=== PATIENT | female | born 1965 | race Caucasian/White ===

== ENCOUNTER 2016-08-08 13:46 | Inpatient (IN) | payer OTHER ==
--- NOTE | ~2016-08-08 | CN ---
Consultation Report [facility] [address] [place]. [address] NAME: CRESENCIO STRATTON : 69 STATUS : ADM IN PAT#: [id number] AGE: 51 ADM/REG DATE : 08/08/16 MR#: [id number] REPORT SERV DATE: 08/09/16 DICTATED BY: OPAL NEWTON DATE: 08/09/16 REPORT STATUS : Draft TRANSCRIBED BY: MODL DATE: 08/09/16 UROLOGY CONSULT DATE OF CONSULTATION: 08/09/2016 This consult is from Dr. Hernandez regarding hematuria and dysuria. CHIEF COMPLAINT: "Blood in my urine." HISTORY: This is a 51-year-old woman, who has had gross hematuria since April. She underwent a TURBT on 06/29/2016, in [place] by Dr. Eladio Neri. She reports she has bladder cancer. However, she has yet to follow up for her pathology results and no pathology report has been reviewed with the patient as of yet. So, that diagnosis is not confirmed. She states that since her surgery, she has been having intermittent hematuria, and she has been having dysuria with frequency and urgency of urination and suprapubic pain. She states she has called Dr. Neri's office several times and spoken to staff complaining of urinary tract infections. She has left urinalysis and has been called back and told she has not had an infection, so no antibiotics have been given. The patient has been frustrated with those reports, so she presented to the emergency room yesterday afternoon at [facility] with the above stated symptoms. CT scan shows no specific findings, all of them are read as interpretation per urinalysis and clinical findings. She has some renal pelvic fullness bilaterally, but no hydroureter. Perinephric stranding is red, but it is very mild. Her right bladder wall was thickened, consistent with recent TURBT. There is no free pelvic fluid. Her urinalysis shows greater than 150 red blood cells, but only 12 white blood cells. There is trace leukocyte esterase. I have called the microbiology lab this morning, and her culture is growing vaginal contaminant. Her white blood cell count is normal. Her creatinine is normal. Her procalcitonin and lactate levels are normal. PAST MEDICAL HISTORY: Hypertension, anxiety disorder, asthma, elevated lipids, tobacco abuse, history of a bladder mass, not yet specified. PAST SURGICAL HISTORY: TURBT on 06/29/2016, carpal tunnel release, left leg surgery, BTL, cholecystectomy, appendectomy, and left oophorectomy. ALLERGIES: SULFA, AZITHROMYCIN, MACROBID, AND MEPERIDINE. HOME MEDICATIONS: ProAir, Xanax, Lipitor, Colace, Flonase, Storden, Advil, indapamide, magnesium, Lopressor, Singulair, potassium, and Altace. SOCIAL HISTORY: . One pack per day x30 years tobacco use. Denies any alcohol use. REVIEW OF SYSTEMS: GENERAL: She denies fever or chills. NEUROLOGIC: Denies symptoms. LUNGS: As above. Consultation Report [address] [place]. [address] NAME: CRESENCIO STRATTON : 69 STATUS : [facility]M [facility]#: [id number] AGE: 51 ADM/REG DATE : 08/08/16 MR#: [id number] REPORT SERV DATE: 08/09/16 DICTATED BY: OPAL NEWTON DATE: 08/09/16 REPORT STATUS : Draft TRANSCRIBED BY: THANG DATE: 08/09/16 HEART: As above. GASTROINTESTINAL: Denies symptoms. GENITOURINARY: As above. MUSCULOSKELETAL: As above. PHYSICAL EXAMINATION: VITAL SIGNS: She is afebrile. Vital signs are stable. She had 3041 mL in and 16 voids. GENERAL: She is in no acute distress. NEUROLOGIC: Alert and oriented x3. PSYCHIATRIC: Anxious. HEENT: Facial features symmetric. Eyes sclerae anicteric. NECK: Supple. LUNGS: Equal inspiratory effort bilaterally. EXTREMITIES: No lower extremity edema noted. LABORATORY STUDIES: White count is 9.8 today, hemoglobin 13, hematocrit 39.0, platelets of 231. Sodium 140, potassium 3.4, chloride 106, CO2 of 29, BUN of 6, creatinine is 0.58, glucose of 108. PTT of 30.8, PT of 13.2, and INR of 1. Urinalysis as stated above. Urine culture is growing 50,000 mixed organisms consistent with vaginal contaminant. CT scan as stated above. Procalcitonin 0.06. BladderScan today postvoid is less than 40 mL. DISCUSSION: I explained to Ms. Stratton that all of her symptoms are normal after TURBT. I explained that she has a large raw sore area on the inside of her bladder that will take three to four months for it to completely heal. Her urine is naturally acidic like lemon juice, so, it echavarria when it hits that sore area in her bladder. I gave her a low acid diet handout, instructed her to drink 2 to 3 L of plain water a day, to use Pyridium or AZO- Standard 200 mg three times a day scheduled. I have written her for oxybutynin ER 10 mg to take every day. I have given her prescription for one-month supply. This is enough to get her through to her next appointment with Dr. Neri or her primary care physician. She no longer needs antibiotics. She simply needs time to heal. Since her primary complaint is difficulty obtaining a postoperative visit with Dr. Neri, I called his answering service today and spoke with Dr. Barry, who is covering for their group. He states that he will give her name to the staff in the morning and they will be ready to receive a phone call from the unit manager rn first thing in the morning to arrange a postoperative visit for Ms. Stratton with Dr. Neri. I explained to Ms. Stratton that our group is very familiar with the [place] group and all of their urologists. I know Dr. Neri and he is a good urologist. He deserves a chance to see her back in the office and explain what he saw at surgery, what her pathology results showed, and what the plan is from here. I am not comfortable ethically or morally taking over her care in the middle of a workup. I do not believe she needs a new urologist for a misunderstanding with his office staff. After discussion, she agrees with the above and as stated, understanding. IMPRESSION: Hematuria, dysuria, frequency, and urgency after a TURBT. PLAN: Consultation Report [address] [address] NAME: CRESENCIO STRATTON : 69 STATUS : [facility]#: [id number] AGE: 51 ADM/REG DATE : 08/08/16 MR#: [id number] REPORT SERV DATE: 08/09/16 DICTATED BY: OPAL NEWTON DATE: 08/09/16 REPORT STATUS : Draft TRANSCRIBED BY: THANG DATE: 08/09/16 1. Antibiotics may be stopped as her urine culture is negative for pathogens of any significance. 2. Continue scheduled Pyridium. 3. I have written for oxybutynin ER 10 mg to take every day, and there is prescription on the chart. 4. A low-acid diet handout has been given and reviewed. 5. She is to drink 2 to 3 L of plain water a day to help her bladder feel more comfortable while it is healing from her bladder resection. 6. I have written orders for the unit manager rn to call Dr. Neri's office tomorrow morning to arrange a postoperative visit for review of her pathology. I have also spoken with Dr. Barry, who is covering for Dr. Neri this weekend. He is giving her name to the office staff first thing in the morning, so they will be ready for the phone call from the unit manager rn to arrange the postoperative visit with Dr. Neri. TJ/THANG Opal Newton M.D. / [id number] CC: Chay Orr KEVIN
--- NOTE | ~2016-08-08 | HP ---
History And Physical [facility] [address] [place]. [address] NAME: CRESENCIO STRATTON : 69 STATUS : ADM IN [facility]#: [id number] AGE: 51 ADM/REG DATE : 08/08/16 MR#: [id number] REPORT SERV DATE: 08/08/16 DICTATED BY: SAVANAH SORIA DATE: 08/08/16 REPORT STATUS : Draft TRANSCRIBED BY: MODL DATE: 08/08/16 DATE OF ADMISSION: 08/08/2016 CHIEF COMPLAINT: Hematuria, increased urinary frequency and urgency, intermittently since surgery in June. HISTORY OF PRESENT ILLNESS: This is a very pleasant 51-year-old female. She has a past medical history significant for hypertension, anxiety disorder, history of asthma, hyperlipidemia, ongoing tobacco abuse that she is a patient of Dr. Ravinder Coles, primary care provider, in [place], [place], which according to the patient, has been diagnosed in 06/15/2016 with bladder cancer. She has been evaluated by Dr. Neri, Urology, in [place], which in 06/29/2016 scheduled her for a cystoscopy, and according to the patient, he removed the cancer and provided local chemotherapy. Yet since surgery, according to the patient, she has been experiencing intermittent episodes of hematuria sometimes with clots as well as significant dysuria, urinary frequency, or urgency. She tried to get back with Dr. Neri, but she was never seen by him. She in fact did have some UA check in his office, but she was never put on any antibiotics nor she has been evaluated since then. Due to the persistent and progressiveness of the symptoms, she has decided today to come to [facility] for further evaluation and treatment. The patient, she says she has significant dysuria with increased urinary frequency and urgency. She has intermittent, as I said, hematuria sometimes with clotting and intermittent fevers. No chills. No nausea or vomiting. No diarrhea or constipation. No hematemesis or melena. No hematochezia. No other complaints. After initial evaluation in the emergency room, Hospitalist Service, has been asked for admission, further evaluation, and treatment. PAST MEDICAL HISTORY: Significant for hypertension, bladder cancer, history of asthma, anxiety disorder, hyperlipidemia, and ongoing tobacco abuse. PAST SURGICAL HISTORY: Include recent removal of the bladder cancer, carpal tunnel release, left leg surgery, tubal ligation, cholecystectomy, appendectomy, and left oophorectomy. SOCIAL HISTORY: She is a smoker, more than a pack a day for 30 years. No alcohol. No IV drugs. She is allergic to sulfa, azithromycin, Macrobid, and meperidine. FAMILY HISTORY: Significant for cancer, diabetes, and dementia. MEDICATIONS: At home would include ProAir, Xanax, Lipitor, Colace, Flonase, Tivoli, Advil, indapamide, magnesium oxide, Lopressor, Singulair, potassium chloride, and Altace. REVIEW OF SYSTEMS: 14-point review of systems has been obtained and pertinent positive has been listed into the history of present illness. Otherwise, negative except those underlying above. OBJECTIVE: VITAL SIGNS: Currently, the patient is afebrile, blood pressure 186/96, heart rate 83, respiratory rate 20, and saturating 98% on room air. GENERAL: She is a well-developed, well-nourished female, in no acute distress. She is alert History And Physical [address] [address] NAME: CRESENCIO STRATTON : 69 STATUS : ADM IN [facility]#: [id number] AGE: 51 ADM/REG DATE : 08/08/16 MR#: [id number] REPORT SERV DATE: 08/08/16 DICTATED BY: SAVANAH SORIA DATE: 08/08/16 REPORT STATUS : Draft TRANSCRIBED BY: MODL DATE: 08/08/16 and oriented x3. Nonfocal. She follows all her commands appropriately. HEENT: Shows pupils equal, round, and reactive to light. Extraocular movements intact. No JVD. No lymphadenopathy. No thyromegaly appreciated. CHEST EVAL: Shows bilateral air entry. Clear anteroposterior. No wheezes, crackles, or rhonchi appreciated. CARDIOVASCULAR: She has regular rate and rhythm. S1, S2 positive. No S3, no S4. No murmurs, rubs, or gallops appreciated. ABDOMEN: Soft with positive bowel sounds. Some suprapubic tenderness, but no guarding, no rebound. EXTREMITIES: No clubbing, cyanosis, or edema. NEUROLOGIC: She is alert and oriented x3. She is nonfocal. She follows commands appropriately. LABORATORY DATA: Labs from today include sodium 139, potassium 3.3, chloride 101, CO2 of 30, BUN 8, creatinine 0.51, glucose is 98. Total bilirubin is 0.3, lipase 161. Her lactate is 0.8. Her white count is 11.8, hemoglobin 15.2, hematocrit 44.3, and platelets are 283. Her UA has been positive for large blood, trace leukocyte esterase, white cells, and also red cells. Blood cultures currently are pending. Urine cultures are pending as well. There is a CT scan of the abdomen and pelvis performed in the emergency room showing that the patient has a prominent thickening of the bladder, particularly of the side with edema in the fat planes surrounding the bladder related probably to the recent surgery for the bladder with probable cystitis and minimal fullness of the rectal collecting system bilaterally with minimal bilateral perinephric stranding, probably secondary to pyelonephritis. No collection or abscess seen on the abdomen and pelvis, status post cholecystectomy. ASSESSMENT AND PLAN: This is a very pleasant 51-year-old female with: 1. Urinary tract infection, cystitis, and pyelonephritis. 2. Recent diagnosed bladder cancer, status post surgery. 3. Hematuria secondary to above. 4. Hypertension. 5. Hypokalemia. 6. Hyperlipidemia. 7. Anxiety disorder. 8. History of asthma. 9. Tobacco abuse. PLAN: 1. The patient is going to be admitted to Hospitalist Service. We are going to place her on IV fluids. We are going to place her on antibiotics with Zosyn. We are going to consult Dr. Mccoy to evaluate the patient. Dr. Newton, the physician correctional officer sergeant, is going to see the patient while she is in the hospital for further recommendation and treatment. We are going to provide symptomatic treatment, Pyridium pain control, and follow up the cultures as well. 2. History of bladder cancer as per Urology. 3. Hematuria secondary to above, as per Urology. History And Physical [address] [address] NAME: CRESENCIO STRATTON : 69 STATUS : ADM IN [facility]#: [id number] AGE: 51 ADM/REG DATE : 08/08/16 MR#: [id number] REPORT SERV DATE: 08/08/16 DICTATED BY: SAVANAH SORIA DATE: 08/08/16 REPORT STATUS : Draft TRANSCRIBED BY: THANG DATE: 08/08/16 4. Hypertension. We will continue her home medication, hold her diuretics, and provide p.r.n. hydralazine as needed. 5. Hypokalemia. Replace her electrolytes. 6. Hyperlipidemia. We will continue her home medications. We will provide also reasonable pain and nausea control as well as GI and DVT prophylaxis with SCDs. That has been discussed extensively with the patient. All the questions have been answered in full. The patient remains full code according to the patient's prior wishes well stated. CF/MODL Savanah Soria M.D. / [id number] CC: Chay Orr KEVIN
--- NOTE | ~2016-08-08 | DS ---
Discharge Summary [place] [address] [place]. [address] NAME: CRESENCIO STRATTON : 69 STATUS : DIS IN PAT#: [id number] AGE: 51 ADM/REG DATE : 08/08/16 MR#: [id number] REPORT SERV DATE: 08/11/16 DICTATED BY: DATE: REPORT STATUS : Draft TRANSCRIBED BY: MODL DATE: 08/10/16 ADMISSION DATE: 08/08/2016 DISCHARGE DATE: 08/10/2016 The patient was admitted to the [facility]. CONSULTANTS: Opal Newton M.D. of Urology. DISCHARGE DIAGNOSES: 1. Dysuria, urinary frequency, hematuria following recent bladder resection. 2. Radiographic evidence of bilateral perinephric stranding, and possible cystitis-changes felt to be postoperative and not infectious. 3. Hypertension. 4. Hyperlipidemia. 5. Asthma. 6. Tobacco dependence. 7. Generalized anxiety disorder. IMAGIN. CT abdomen and pelvis without contrast on 08/08/2016 showing prominent thickening of the urinary bladder along the right lateral wall with edema in the fat planes surrounding the bladder. Findings likely related to recent surgery with superimposed cystitis not excluded. Minimal fullness of the renal collecting system bilaterally with minimal bilateral perinephric stranding. No appearance of high-grade obstructive uropathy. No organized drainable collection or abscess in the abdomen. Status post cholecystectomy. 2. Portable chest x-ray on 08/08/2016 shows no acute abnormality. PERTINENT LABS: White blood cell count between 9.8 and 11.8, hemoglobin values between 13.1 and 15.2. Coagulation studies normal. Platelets normal. Serum HCG negative. Lactate 0.7. Procalcitonin negative. Creatinine between 0.51 and 0.58. Liver enzymes normal. TSH and free T4 normal. Hemoglobin A1c 5.8. Urinalysis hazy with large blood, trace leukocyte esterase, greater than 182 red blood Discharge Summary [place] [address] [facility] [place]. [address] NAME: CRESENCIO STRATTON : 69 STATUS : DIS IN PAT#: [id number] AGE: 51 ADM/REG DATE : 08/08/16 MR#: [id number] REPORT SERV DATE: 08/11/16 DICTATED BY: DATE: REPORT STATUS : Draft TRANSCRIBED BY: MODL DATE: 08/10/16 cells, 21 white cells, 1 squamous epithelial cell. Subsequent culture demonstrating 50,000 colony-forming units of mixed gram-positive cocci, gram-negative bacilli, and diphtheroids. BRIEF HISTORY: For full details please see the previously dictated history of present illness by Dr. Savanah Hernandez. This is a 51-year-old white female, long-standing tobacco dependence, who presented to the emergency department at [facility] with chief complaints of dysuria, urinary frequency, and hematuria ongoing for the past three to four weeks following a recent TURBT by Dr. Neri. She had been attempting to get in touch with their office on several occasions and was becoming frustrated by being told that she did not have a urinary tract infection, and frustrated that she could not obtain her pathology results from the recent surgery. In the emergency department, she was noted to have leukocytosis and hematuria with CT abdomen and pelvis, demonstrating possible bilateral pyelonephritis and cystitis, and she was admitted to the Hospitalist Service for further management. HOSPITAL COURSE: The patient was placed on IV fluids, and IV Zosyn. consultation was obtained from Dr. Opal Newton, who saw the patient on 08/09/2016 and spent extensive amount of time with the patient, explaining that many of the symptoms she is experiencing are to be expected following the type of surgery that she had. Dr. Newton was not comfortable ethically or morally taking over her care in the middle of the evaluation being performed by Dr. Neri and did not believe that she needed a new urologist at present, or that patient had any acute urologic issues. Dr. Newton discontinued the antibiotic and encouraged the patient to adhere to increased amounts of water intake, Pyridium, and a low acid diet for symptom relief. The patient tried this for an additional 24 hours in the hospital and reported some symptomatic improvement. Her pain with urination decreased, and her urinary flow improved with Pyridium. She was still complaining of ongoing hematuria, but it has been unchanged from the past few weeks and there was no significant decline in hemoglobin to suggest acute blood loss. She did complain of some vaginal candidiasis prior to discharge, and will be prescribed Diflucan for this. Dr. Newton facilitated follow up with Dr. Neri, and the patient has an appointment pending for 08/19/2016. DISCHARGE INSTRUCTIONS: The patient is being discharged to home in the care of supportive family with no specific activity restrictions. She was provided with a work note, and is unable to return to full duty until after her appointment with Dr. Neri. Regarding diet, she should continue to drink 2 L of pure water daily and adhere to a low acid diet as outlined by Dr. Newton for the patient. DISCHARGE MEDICATIONS: 1. Xanax 0.25 mg p.o. three times a day. 2. Lipitor 40 mg p.o. q.h.s. 3. Flonase one spray per nostril daily. 4. Singulair 10 mg p.o. q.h.s. Discharge Summary [address] [address] NAME: CRESENCIO STRATTON : 69 STATUS : DIS IN PAT#: [id number] AGE: 51 ADM/REG DATE : 08/08/16 MR#: [id number] REPORT SERV DATE: 08/11/16 DICTATED BY: DATE: REPORT STATUS : Draft TRANSCRIBED BY: THANG DATE: 08/10/16 5. Lopressor 100 mg p.o. daily. 6. Altace 10 mg p.o. q.h.s. 7. Oxybutynin XL 10 mg p.o. daily. 8. Phenazopyridine 190 mg p.o. three times a day. 9. Indapamide 1.25 mg p.o. daily. 10.Potassium chloride 20 mEq p.o. twice a day. 11.Waterfall 10/325 mg 0.5 to 1 tablet p.o. every 4 hours as needed. 12.Magnesium oxide 250 mg p.o. q.h.s. 13.Colace 100 mg p.o. twice a day as needed. 14.ProAir HFA two puffs inhaled as needed for shortness of breath. 15.Diflucan 150 mg p.o. q.72 hours x2 doses. Twenty-five minutes were spent in completion of the discharge. DICTATED BY: Chay Orr/THANG Blayne Israel M.D. / [id number] CC: Chay Orr DO CHRISTOPHER THACKER, MD
[2016-08-08 14:56] LABS: BASOPHILS 0.3 %; BASOPHILS ABSOLUTE 0.03 10/3/uL (0.0-0.16); EOSINOPHILS 2.6 %; HEMATOCRIT 44.3 % (36.0-48.0); HEMOGLOBIN 15.2 g/dL (12.0-16.0); IMMATURE GRANULOCYTES 0.3 %; IMMATURE GRANULOCYTES ABSOLUTE 0.04 10/3/uL (0.0-0.11); LYMPHOCYTES 28.6 %; LYMPHOCYTES ABSOLUTE 3.36 10/3/uL (0.67-4.30); MANUAL DIFF NO %; MEAN CORPUS HGB CONC 34.3 g/dL (32.0-36.0); MEAN CORPUSCULAR HEMOGLOB 31.1 pg (26.0-34.0); MEAN CORPUSCULAR VOLUME 90.6 fL (80-100); MEAN PLATELET VOLUME 10.1 fL (9.2-13.0); MONOCYTES ABSOLUTE 0.94 10/3/uL (0.21-1.20); NEUTROPHILS 60.2 %; NEUTROPHILS ABSOLUTE 7.08 10/3/uL (2.02-8.40); PLATELET COUNT 285 10/3/uL (150-400); RBC DISTRIBUTION WIDTH 12.6 % (12.0-16.0); RED CELL COUNT 4.89 10/6/uL (4.0-5.6); WHITE BLOOD CELLS 11.8 10/3/uL (4.5-10.5)
[2016-08-08 15:05] LABS: ASCORBIC ACID (UR NOT ORDER) NEG (NEG); BILIRUBIN, URINE NEGATIVE (NEG); ER URINALYSIS TAT 0 Hrs 15 Mins; KETONE, URINE NEGATIVE (NEG); LEUKOCYTE ESTERASE(NOT OR TRACE (NEG); NITRITE (URINE) NEG (NEG); WBC (NOT ORDERED) (RFLEX) 21 (0-5)
[2016-08-08 15:12] LABS: ALBUMIN 3.6 G/DL (3.5-5.0); ALKALINE PHOSPHATASE 161 U/L (45-117); BUN (BLOOD UREA NITROGEN) 8 MG/DL (6-23); CALCIUM, SERUM 9.3 MG/DL (8.5-10.4); CHLORIDE, SERUM 101 MMOL/L (96-112); CO2 (CARBON DIOXIDE) 30 MMOL/L (24-34); CREATININE 0.51 MG/DL (0.55-1.02); GFR AFRICAN AMERICAN 131 ML/MIN (>=60); GFR NON AFRICAN AMERICAN 113 ML/MIN (>=60); GLOBULIN 3.7 G/DL (2.5-4.1); GLUCOSE, SERUM 98 MG/DL (60-99); POTASSIUM, SERUM 3.3 MMOL/L (3.5-5.3); SGOT(AST) 15 U/L (5-40); SGPT(ALT) 25 U/L (5-65); SODIUM, SERUM 139 MMOL/L (135-148); TOTAL BILIRUBIN 0.3 MG/DL (0-1.2); TOTAL PROTEIN 7.3 G/DL (6.0-8.5)
[2016-08-08 15:14] LABS: LACTATE 0.8 MMOL/L (0.3-2.4)
[2016-08-08] MEDS ORDERED: LOP100 PO (15:58)
[2016-08-08] MEDS ORDERED: SINGULAIR1 PO (15:59)
[2016-08-08] MEDS ORDERED: LIPITOR40 PO (15:59)
[2016-08-08] MEDS ORDERED: KLOR-CON M2020 MEQ PO (15:59)
[2016-08-08] MEDS ORDERED: INDAPAMIDE1.25 MG PO (15:59)
[2016-08-08] MEDS ORDERED: NORCO1 TAB PO (16:00)
[2016-08-08] MEDS ORDERED: FLONASE NAS (16:01)
[2016-08-08] MEDS ORDERED: X25 PO (16:01)
[2016-08-08] MEDS ORDERED: ALTACE10 MG PO (16:01)
[2016-08-08] MEDS ORDERED: MAG OXIDE250 MG PO (16:02)
[2016-08-08] MEDS ORDERED: ADVIL PO (16:02)
[2016-08-08] MEDS ORDERED: PROAIR HFA INH (16:03)
[2016-08-08] MEDS ORDERED: DSS PO (16:03)
[2016-08-08 19:04] LABS: PARTIAL THROMBO TIME 30.8 SEC (22.5-37.2); PROTIME (NOT ORD) 13.2 SEC (12.0-14.5)
[2016-08-08 19:17] LABS: FREE T4 1.5 NG/DL (0.76-1.46); PHOSPHORUS, SERUM 3.5 MG/DL (2.5-4.5); ULTRASENSITIVE TSH 1.54 MCIU/ML (0.358-3.740)
[2016-08-08 19:46] LABS: PROCALCITONIN 0.06 ng/mL (<0.5)
[2016-08-09 06:08] LABS: BASOPHILS 0.2 %; BASOPHILS ABSOLUTE 0.02 10/3/uL (0.0-0.16); EOSINOPHILS 4.3 %; EOSINOPHILS ABSOLUTE 0.42 10/3/uL (0.0-0.53); IMMATURE GRANULOCYTES 0.1 %; IMMATURE GRANULOCYTES ABSOLUTE 0.01 10/3/uL (0.0-0.11); LYMPHOCYTES 34.9 %; LYMPHOCYTES ABSOLUTE 3.41 10/3/uL (0.67-4.30); MEAN CORPUS HGB CONC 33.3 g/dL (32.0-36.0); MEAN CORPUSCULAR HEMOGLOB 30.9 pg (26.0-34.0); MEAN CORPUSCULAR VOLUME 92.6 fL (80-100); MEAN PLATELET VOLUME 10.3 fL (9.2-13.0); MONOCYTES ABSOLUTE 0.78 10/3/uL (0.21-1.20); NEUTROPHILS 52.5 %; NEUTROPHILS ABSOLUTE 5.14 10/3/uL (2.02-8.40); PLATELET COUNT 231 10/3/uL (150-400); RBC DISTRIBUTION WIDTH 12.8 % (12.0-16.0); RED CELL COUNT 4.21 10/6/uL (4.0-5.6); WHITE BLOOD CELLS 9.8 10/3/uL (4.5-10.5)
[2016-08-09 06:17] LABS: MANUAL DIFF NO %
[2016-08-09 06:19] LABS: BUN (BLOOD UREA NITROGEN) 6 MG/DL (6-23); CALCIUM, SERUM 8.4 MG/DL (8.5-10.4); CHLORIDE, SERUM 106 MMOL/L (96-112); CO2 (CARBON DIOXIDE) 29 MMOL/L (24-34); CREATININE 0.58 MG/DL (0.55-1.02); GFR AFRICAN AMERICAN 125 ML/MIN (>=60); GFR NON AFRICAN AMERICAN 108 ML/MIN (>=60); GLUCOSE, SERUM 108 MG/DL (60-99); POTASSIUM, SERUM 3.4 MMOL/L (3.5-5.3); SODIUM, SERUM 140 MMOL/L (135-148)
[2016-08-10 05:17] LABS: BASOPHILS 0.2 %; BASOPHILS ABSOLUTE 0.02 10/3/uL (0.0-0.16); EOSINOPHILS 4.5 %; EOSINOPHILS ABSOLUTE 0.46 10/3/uL (0.0-0.53); HEMATOCRIT 39.3 % (36.0-48.0); HEMOGLOBIN 13.1 g/dL (12.0-16.0); IMMATURE GRANULOCYTES 0.2 %; IMMATURE GRANULOCYTES ABSOLUTE 0.02 10/3/uL (0.0-0.11); LYMPHOCYTES 24.6 %; LYMPHOCYTES ABSOLUTE 2.52 10/3/uL (0.67-4.30); MEAN CORPUS HGB CONC 33.3 g/dL (32.0-36.0); MEAN CORPUSCULAR VOLUME 92.9 fL (80-100); MEAN PLATELET VOLUME 10.2 fL (9.2-13.0); MONOCYTES 6.6 %; MONOCYTES ABSOLUTE 0.68 10/3/uL (0.21-1.20); NEUTROPHILS 63.9 %; NEUTROPHILS ABSOLUTE 6.56 10/3/uL (2.02-8.40); PLATELET COUNT 232 10/3/uL (150-400); RBC DISTRIBUTION WIDTH 12.8 % (12.0-16.0); RED CELL COUNT 4.23 10/6/uL (4.0-5.6); WHITE BLOOD CELLS 10.3 10/3/uL (4.5-10.5)
[2016-08-10 05:20] LABS: MANUAL DIFF NO %
[2016-08-10 05:38] LABS: BUN (BLOOD UREA NITROGEN) 5 MG/DL (6-23); CALCIUM, SERUM 8.8 MG/DL (8.5-10.4); CHLORIDE, SERUM 108 MMOL/L (96-112); CO2 (CARBON DIOXIDE) 25 MMOL/L (24-34); CREATININE 0.53 MG/DL (0.55-1.02); GFR AFRICAN AMERICAN 129 ML/MIN (>=60); GFR NON AFRICAN AMERICAN 111 ML/MIN (>=60); GLUCOSE, SERUM 112 MG/DL (60-99); POTASSIUM, SERUM 3.8 MMOL/L (3.5-5.3); SODIUM, SERUM 140 MMOL/L (135-148)
[2016-08-10] MEDS ORDERED: DITROPAN XL10 MG PO (15:24)
[2016-08-10] MEDS ORDERED: FLUCON150 PO (15:25)
[2016-08-10] MEDS ORDERED: PYR200 PO (15:25)
== END 2016-08-10 17:23 | disposition home or self-care (01) | DRG 699 ==
LOC: ER 13:46 → 4SO 17:16
PROVIDERS: Hospitalist; Internal Medicine; Nurse Practitioner Family
DX: N99.89 Other postprocedural complications and disorders of genitourinary system (principal); N12 Tubulo-interstitial nephritis, not specified as acute or chronic; Z90.6 Acquired absence of other parts of urinary tract; I10 Essential (primary) hypertension; F17.210 Nicotine dependence, cigarettes, uncomplicated; B37.3 Candidiasis of vulva and vagina; Y83.6 Removal of other organ (partial) (total) as the cause of abnormal reaction of the patient, or of later complication, without mention of misadventure at the time of the procedure; Y92.009 Unspecified place in unspecified non-institutional (private) residence as the place of occurrence of the external cause; E87.6 Hypokalemia; E78.5 Hyperlipidemia, unspecified; J45.909 Unspecified asthma, uncomplicated; Z79.899 Other long term (current) drug therapy; Z85.51 Personal history of malignant neoplasm of bladder; Z88.2 Allergy status to sulfonamides; Z88.1 Allergy status to other antibiotic agents; Z88.8 Allergy status to other drugs, medicaments and biological substances; Z79.891 Long term (current) use of opiate analgesic; R31.9 Hematuria, unspecified; F41.1 Generalized anxiety disorder
CPT/HCPCS: 71010; 74176; 80048; 80053; 81001; 83036; 83605; 83615; 83690; 83735; 84100; 84132; 84145; 84439; 84443; 84703; 85025; 85610; 85730; 87040; 87086; 93005; 96374; 96375; 99285; A9270-GY; J1170; J2405; J2543